=== PATIENT | female | born 1970 | race Caucasian/White ===

== ENCOUNTER → 2021-02-24 08:12 | Outpatient (CLI) | payer SELFPAY, OTHER ==
--- NOTE | 2021-02-24 08:31 | US_ITS ---
STUDY: ABDOMINAL ULTRASOUND REASON FOR EXAM: Female, 51 years old. LUQ PAIN TECHNIQUE: Transabdominal ultrasound was performed with real-time and static knight scale imaging. TECHNICAL QUALITY: Adequate. COMPARISON: None. FINDINGS: Liver: The liver measures 16.4 cm. There is normal echogenicity of the liver. The bile ducts are within normal limits. There is hepatic color flow. The direction of portal flow is hepatopetal. There is no demonstrated mass lesion. Gallbladder: Normal distended gallbladder. The gallbladder wall measures 2 mm. There is a negative sonographic Shankar''s sign. There is no pericholecystic fluid. There are no gallstones. Common Bile Duct (C.B.D.): The common bile duct measures 4 mm. Pancreas: Normal size of the head, body and tail of the pancreas. There is normal echogenicity of the pancreas. There is no demonstrated pancreatic mass or cyst. Spleen: Normal size of the spleen. The spleen measures 8.9 cm x 3.9 cm x 3.9 cm. Right Kidney: Normal size of the right kidney. The right kidney measures 10.5 cm x 4.9 cm x 3.9 cm. Normal renal cortex. The right cortex measures 1.8 cm. There is a 2.2 cm x 2.1 cm x 1.7 cm cyst in the midpole of the kidney. There is no right hydronephrosis. Left Kidney: Normal size of the left kidney. The left kidney measures 13.9 cm x 5.2 cm x 4.8 cm. Normal renal cortex. The left cortex measures 1.6 cm. There is a 2.4 cm x 1.9 cm x 1.9 cm cyst in the lower pole. There is no left hydronephrosis. Aorta: Unremarkable I.V.C.: The IVC is patent. There is no ascites. US/Abdomen Complete IMPRESSION: Bilateral renal cysts. Electronically Signed: Justin Sesay MD at 10:34 EDT , Service support ,
== END ==
DX: R10.12 Left upper quadrant pain (principal)
CPT/HCPCS: 76700